=== PATIENT | female | born 1985 | race Caucasian/White ===

== ENCOUNTER 2021-11-24 02:01 | Emergency (ER) | payer OTHER, MEDICAID ==
[~2021-11-24] VITALS: Ht 170.2 cm; Wt 89.7 kg
[2021-11-24 02:24] LABS: HEMATOCRIT 39.1 % (37.0-47.0); HEMOGLOBIN 13.1 gm/dL (12.0-15.0); MCH 32.5 pg (26.0-34.0); MCHC 33.4 g/dL (28.0-37.0); MCV 97.3 fL (80.0-100.0); MPV 8.7 fl. (7.2-11.1); RBC 4.02 mil/uL (4.20-5.00); RDW-CV 24.3 % (10.5-14.5); WBC 6.6 thou/uL (4.0-11.0)
[2021-11-24 02:38] LABS: CALCIUM 7.5 mg/dL (8.5-10.1); CREATININE 0.8 mg/dL (0.6-1.3)
[2021-11-24 02:42] LABS: POTASSIUM 2.7 mmol/L (3.5-5.1)
[2021-11-24 02:51] LABS: ALBUMIN 3.4 g/dL (3.4-5.0); TOTAL PROTEIN 6.5 g/dL (6.4-8.2)
[2021-11-24 02:52] LABS: URINE BLOOD NEGATIVE (Negative); URINE CLARITY CLEAR; URINE COLOR DARK YELLOW; URINE GLUCOSE-RANDOM NEGATIVE (Negative); URINE LEUKOCYTES TRACE (Negative); URINE NITRITE NEGATIVE (Negative); URINE PROTEIN TRACE (Negative); URINE SPECIFIC GRAVITY >= 1.030 (1.005-1.030); URINE UROBILINOGEN 0.2 E.U./dl (0.2-1.0)
[2021-11-24 02:54] LABS: URINE BILIRUBIN 2+ (Negative); URINE KETONES 3+ (Negative)
[2021-11-24 02:58] LABS: ACETAMINOPHEN < 2 ug/mL (10-30); ALCOHOL < 10 mg/dL (<10); SALICYLATE 3.7 mg/dL (2.8-20.0)
[2021-11-24 03:01] LABS: AMP/METHAMP POSITIVE (Negative); BARBITURATES Negative (Negative); BENZODIAZEPINES Negative (Negative); COCAINE Negative (Negative); METHADONE Negative (Negative); OPIATES Negative (Negative); PCP Negative (Negative); THC Negative (Negative)
[2021-11-24 03:03] LABS: SQUAMOUS 4-10 Moderate /LPF (0-3); TRANSITIONAL EPITHEL CELL 0-3 Few /LPF (None Seen); URINE RBC 0-2 Rare /HPF (0-2); URINE WBC 6-15 Few /HPF (0-5)
[2021-11-24 03:04] LABS: BACTERIA >30 Many /HPF (None Seen); COARSE GRANULAR CASTS 0-3 Few /LPF (None Seen); CRYSTALS None Seen /LPF (None Seen); FINE GRANULAR CASTS 4-10 Moderate /LPF (None Seen); HYALINE CASTS 4-10 Moderate /LPF (None Seen); MUCUS 4-6 Moderate strn/LPF (None Seen)
[2021-11-24 05:47] VITALS: BP 132/84
--- NOTE | 2021-11-24 09:17 | EKG ---
[place] [address] ELECTROCARDIOGRAM REPORT Name: MASOUD IRWIN Room: [facility]#: [id number] Admission: 11/24/21 Attend Phys: Discharge: 11/24/21 Date of : 83 Date of Service: 11/24/21 0208 Report #: [id number] THIS REPORT FOR: //name// [facility] ED Test Date: 2021-11-24 Test Time: 02:08:59 Pat Name: MASOUD IRIWN Department: Room: Gender: Recreational Leader: : 1985 Requested By: Gabriela Mg Order Number: [id number] MD: Felix Fowler Measurements Intervals [place] Rate: 116 P: 73 WA: 125 QRS: 71 QRSD: 94 T: -78 QT: 358 QTc: 498 Interpretive Statements Sinus tachycardia Nonspecific repol abnormality, diffuse leads Baseline wander in lead(s) V3 No previous ECG available for comparison Electronically Signed On 11-24-2021 9:17:29 TRANSFER STATION ATTENDANT by Felix Fowler [email or web address] <ELECTRONICALLY SIGNED> By: Felix Fowler MD, [facility] 11/24/21 0917 0208 Felix Fowler MD, [facility] /EPI
== END 2021-11-24 05:47 | disposition home or self-care (01) ==
LOC: M.ERS 02:01
PROVIDERS: Personal Emergency Response Attendant
DX: F15.129 Other stimulant abuse with intoxication, unspecified (principal); F41.9 Anxiety disorder, unspecified